=== PATIENT | male | born 1985 | race Caucasian/White ===

== ENCOUNTER 2019-03-30 11:04 | Emergency (ER) | payer SELFPAY ==
[~2019-03-30] VITALS: Ht 182.9 cm; Wt 68.0 kg
--- NOTE | 2019-03-30 11:10 | NUR ---
US TECH AT BEDSIDE.
--- NOTE | 2019-03-30 11:44 | NUR ---
Patient discharged to home in stable conditon. Written and verbal after care instructions given. Patient verbalizes understanding of instructions. ALL BELONGINGS W/ PT. PT SELF-AMBULATED W/O DIFFICULTY.
[2019-03-30 11:45] VITALS: BP 131/70
== END 2019-03-30 11:59 | disposition home or self-care (01) ==
LOC: ER 11:06
DX: N50.89 Other specified disorders of the male genital organs (principal)
CPT/HCPCS: 76870; A4663